=== PATIENT | male | born 1945 | race Caucasian/White ===

== ENCOUNTER 2016-06-04 12:04 | Day surgery (SDC) | payer MEDICARE ==
--- NOTE | ~2016-06-04 | EGD ---
EGD REPORT [facility] [address] [id number] NAME: ALEX GUILLEN : 41 STATUS : REG [facility] [place] PAT#: [id number] AGE: 70 ADM/REG DATE : 06/04/16 MR#: [id number] REPORT SERV DATE: 06/04/16 DICTATED BY: ZOYA FISH DATE: 06/04/16 REPORT STATUS : Draft [facility]: [facility] DATE: 06/04/16 End[facility] Center Patient Name: Alex Guillen Date of : 1945 Attending MD: ZOYA FISH MD Procedure Date No Time: 06/04/2016 Procedure: Upper GI endoscopy Indications: Dysphagia, Food bolus obstruction of the esophagus 03/13/2016 Referring MD: Israel Page Medicines: Propofol per Anesthesia Complications: No immediate complications. Estimated blood loss: Minimal. Procedure: Pre-Anesthesia Assessment: - After reviewing the risks and benefits, the patient was deemed in satisfactory condition to undergo the procedure. - Prior to the procedure, a History and Physical was performed, and patient medications and allergies were reviewed. The patient's tolerance of previous anesthesia was also reviewed. The risks and benefits of the procedure and the sedation options and risks were discussed with the patient. All questions were answered, and informed consent was obtained. Prior Anticoagulants: The patient has taken Plavix (clopidogrel), last dose was 1 day prior to procedure. ASA Grade Assessment: III - A patient with severe systemic disease. After reviewing the risks and benefits, the patient was deemed in satisfactory condition to undergo the procedure. After obtaining informed consent, the endoscope was passed under direct vision. Throughout the procedure, the patient's blood pressure, pulse, and oxygen saturations were monitored continuously. The GIF [id number] was introduced through the mouth, and advanced to the third part of duodenum. The upper GI endoscopy was accomplished without difficulty. The patient tolerated the procedure well. Findings: A mild Schatzki ring (acquired) was found at the gastroesophageal junction. A TTS dilator was passed through the scope. Dilation with an 18-19-20 mm balloon (to a maximum balloon size of 20 mm) dilator was performed. Estimated blood loss was minimal. The entire examined stomach and gastroesophageal junction (on retroflexion) were normal. EGD REPORT [address] [address] NAME: ALEX GUILLEN : [birth year] STATUS : REG [facility]#: [id number] AGE: 70 ADM/REG DATE : 06/04/16 MR#: [id number] REPORT SERV DATE: 06/04/16 DICTATED BY: ZOYA FISH DATE: 06/04/16 REPORT STATUS : Draft [facility]: [facility] DATE: 06/04/16 The examined duodenum was normal. Impression: - Mild Schatzki ring. Dilated. - Normal stomach and gastroesophageal junction. - Normal examined duodenum. - GERD. Recommendation: - Discharge patient to home (ambulatory). - Soft diet today then advance diet tomorrow as tolerated. - Continue present medications including Protonix (pantoprazole) 40 mg daily. - Continue aspirin and Plavix. - Repeat esophageal dilation as needed off of Plavix. - Patient has a contact number available for emergencies. The signs and symptoms of potential delayed complications were discussed with the patient. Return to normal activities tomorrow. Written discharge instructions were provided to the patient. Procedure Code(s): --- Professional --- 91268, Esophagogastroduodenoscopy, flexible, transoral; with transendoscopic balloon dilation of esophagus (less than 30 mm diameter) Diagnosis Code(s): --- Professional --- K22.2, Esophageal obstruction K21.9, Gastro-esophageal reflux disease without esophagitis R13.10, Dysphagia, unspecified CPT copyright 2013 [employer]. All rights reserved. The codes documented in this report are preliminary and upon human resources leader review may be revised to meet current compliance requirements. ZOYA FISH MD 06/04/2016 2:37 PM This report has been signed electronically. Number of Addenda: 0 Note Initiated On: 06/04/2016 2:12 PM Scope Withdrawal Time 0 hours 0 minutes 0 seconds [address] [place] [address]
[~2016-06-04 12:04] MED LIST: ACET500CAP PO; ASAB PO; BRILINTA90 MG PO; CO Q-10200 MG PO; COREG6 PO; CRESTOR10 PO; HALF81 PO; LIPITOR40 PO; NITROSTAT0.4 MG SL; NORCO1 TA1 PO; PLAVIX PO; PRILO PO; PRILOSEC40 MG PO; PRIN2.5 PO; PRIN5 PO; PROTONIX PO; Z-PAK PO; ZYRTEC ALLGY10 MG PO
== END 2016-06-04 23:59 | disposition home or self-care (01) ==
LOC: DMU 12:04
PROVIDERS: Internal Medicine Gastroenterology
PROC: 0D748ZZ Dilation of Esophagogastric Junction, Via Natural or Artificial Opening Endoscopic (ICD-10-PCS; principal; 2016-06-04 13:45)
DX: K22.2 Esophageal obstruction (principal); K21.9 Gastro-esophageal reflux disease without esophagitis; I10 Essential (primary) hypertension; I25.10 Atherosclerotic heart disease of native coronary artery without angina pectoris; I73.9 Peripheral vascular disease, unspecified; E78.00 Pure hypercholesterolemia, unspecified; K44.9 Diaphragmatic hernia without obstruction or gangrene
CPT/HCPCS: C1725; C1726